=== PATIENT | female | born 1940 | race Asian ===

== ENCOUNTER 2016-07-21 06:09 | Day surgery (SDC) | END 2016-07-21 06:10 | disposition home or self-care (01) | CPT/HCPCS: G0121; J7120 ==

== ENCOUNTER 2017-03-15 10:24 | Outpatient (CLI) | payer MEDICARE, MEDICAID ==
--- NOTE | 2017-03-15 13:14 | XRAY Report ---
THREE VIEW BILATERAL SHOULDERS: 03/15/2017 CLINICAL INDICATION: Pain. FINDINGS: Internal and external rotational views and scapular Y views of the bilateral shoulders dem onstrate right worse than left degenerative changes in the glenohumeral and acromioclavicular joints. Both humeral heads appear high-riding, suspicious for chronic rotator cuff tears. There is no eviden ce of acute fracture or dislocation. IMPRESSION: RIGHT WORSE THAN LEFT OSTEOARTHRITIS. BILATERAL HIGH-RIDING HUMERAL HEADS, SUSPICIOUS FO R CHRONIC ROTATOR CUFF TEARS. JOB #: [id number] EXT JOB #:[id number]
== END 2017-03-15 10:25 | disposition home or self-care (01) ==
LOC: DI.N 10:24
PROVIDERS: ATTEND Family Medicine
DX: M25.512 Pain in left shoulder (principal); M25.511 Pain in right shoulder; M19.012 Primary osteoarthritis, left shoulder; M19.011 Primary osteoarthritis, right shoulder

== ENCOUNTER 2018-01-30 13:14 | Outpatient (CLI) | payer MEDICARE, MEDICAID ==
--- NOTE | 2018-01-30 14:43 | XRAY Report ---
Procedure Date: 01/30/2018 Accession Number: [id number] / [id number] Procedure: XR - Shoulder 2 View LT CPT Code: FULL RESULT: EXAM: Shoulder 2 View LT DATE: 01/30/2018 1:53 PM CLINICAL HISTORY: PRIM OSTEOARTHRITIS,LT SHOULDER,PAIN COMPARISON: None. TECHNIQUE: 3 views. FINDINGS: Bones: Old healed left humeral head impaction lesion. Joints: Mild sclerosis about the glenoid fossa. The acromioclavicular joint is within normal limits. Soft tissues: The visualized hemithorax is unremarkable. No soft tissue swelling. The patient is status post CABG. IMPRESSION: Degenerative changes as described. RADIA
== END 2018-01-30 13:15 | disposition home or self-care (01) ==
LOC: DI 13:14
PROVIDERS: ATTEND Family Medicine
DX: M19.012 Primary osteoarthritis, left shoulder (principal)

== ENCOUNTER 2018-02-07 07:46 | Outpatient (CLI) | payer MEDICARE, MEDICAID ==
[2018-02-07 12:25] LABS: BASOPHILS % (AUTO) 0.5 %; EOSINOPHILS # (AUTO) 0.2 10^3/uL (0.0-0.7); EOSINOPHILS % (AUTO) 2.2 %; HGB - HEMOGLOBIN 11.7 g/dL (12.0-16.0); LYMPHOCYTES # (AUTO) 2.3 10^3/uL (1.5-3.5); LYMPHOCYTES % (AUTO) 26.8 %; MEAN CORPUSCULAR HEMOGLOBIN 30.2 pg (27.0-31.0); MEAN CORPUSCULAR HGB CONC 33.8 g/dL (32.0-36.0); MEAN CORPUSCULAR VOLUME 89.3 fL (81.0-99.0); MEAN PLATELET VOLUME 7.4 fL (7.9-10.8); MONOCYTES # (AUTO) 0.7 10^3/uL (0.0-1.0); MONOCYTES % (AUTO) 8.1 %; NEUTROPHILS # (AUTO) 5.3 10^3/uL (1.5-6.6); NEUTROPHILS % (AUTO) 62.4 %; PLT - PLATELET COUNT 342 10^3/uL (130-450); RED CELL DISTRIBUTION WIDTH 13.7 % (12.0-15.0); WHITE BLOOD COUNT 8.5 x10^3/uL (4.8-10.8)
[2018-02-07 14:41] LABS: ALBUMIN 4.1 g/dL (3.2-5.5); ALBUMIN/GLOBULIN RATIO 1.1 (1.0-2.2); ALKALINE PHOSPHATASE 84 IU/L (42-121); ALT ALANINE AMINOTRANSFERASE 18 IU/L (10-60); AST ASPARTATE AMINOTRANSFERASE 28 IU/L (10-42); BILIRUBIN,TOTAL 0.5 mg/dL (0.2-1.0); BUN - BLOOD UREA NITROGEN 12 mg/dL (6-20); CALCIUM 8.6 mg/dL (8.5-10.3); CARBON DIOXIDE - CO2 25 mmol/L (21-32); CHLORIDE 102 mmol/L (101-111); CHOL/HDL RATIO 3.3 (<4.4); CHOLESTEROL 135 mg/dL; CREATININE 0.6 mg/dL (0.4-1.0); GFR - MDRD 96 (>89); GLUCOSE 93 mg/dL (70-100); HDL CHOLESTEROL 41 mg/dL; LDL CHOLESTEROL,CALCULATED 71 mg/dL; LDL/HDL RATIO 1.7 (<4.4); SODIUM 135 mmol/L (135-145); TOTAL PROTEIN 7.7 g/dL (6.7-8.2); VLDL CHOLESTEROL 23 mg/dL
== END 2018-02-07 07:47 ==
LOC: LAB.N 07:46
PROVIDERS: ATTEND Family Medicine
DX: D64.9 Anemia, unspecified (principal); I10 Essential (primary) hypertension; E78.5 Hyperlipidemia, unspecified
CPT/HCPCS: 36415; 80053; 80061; 83721; 84443; 85025

== ENCOUNTER 2019-03-15 08:00 | Outpatient (CLI) | payer MEDICARE, MEDICAID ==
[2019-03-15 12:25] LABS: BASOPHILS % (AUTO) 0.5 %; EOSINOPHILS # (AUTO) 0.1 10^3/uL (0.0-0.7); EOSINOPHILS % (AUTO) 1.5 %; HGB - HEMOGLOBIN 11.1 g/dL (12.0-16.0); LYMPHOCYTES # (AUTO) 1.4 10^3/uL (1.5-3.5); LYMPHOCYTES % (AUTO) 16.2 %; MEAN CORPUSCULAR HEMOGLOBIN 28.8 pg (27.0-31.0); MEAN CORPUSCULAR HGB CONC 31.5 g/dL (32.0-36.0); MEAN CORPUSCULAR VOLUME 91.2 fL (81.0-99.0); MEAN PLATELET VOLUME 9.1 fL (7.9-10.8); MONOCYTES # (AUTO) 0.7 10^3/uL (0.0-1.0); MONOCYTES % (AUTO) 7.6 %; NEUTROPHILS # (AUTO) 6.5 10^3/uL (1.5-6.6); PLT - PLATELET COUNT 310 10^3/uL (130-450); RED BLOOD COUNT 3.86 10^6/uL (4.20-5.40); RED CELL DISTRIBUTION WIDTH 13.2 % (12.0-15.0); WHITE BLOOD COUNT 8.7 x10^3/uL (4.8-10.8)
[2019-03-15 12:31] LABS: CALCIUM 9.2 mg/dL (8.5-10.3); CREATININE 0.8 mg/dL (0.4-1.0)
== END 2019-03-15 23:59 | disposition home or self-care (01) ==
LOC: LAB.N 08:00
PROVIDERS: ATTEND Physician Assistant Medical
DX: I10 Essential (primary) hypertension (principal)
CPT/HCPCS: 36415; 80048; 84443; 85025

== ENCOUNTER 2020-10-06 08:00 | Outpatient (CLI) | payer MEDICARE, MEDICAID ==
[2020-10-06 18:17] LABS: ALBUMIN 3.9 g/dL (3.2-5.5); ALBUMIN/GLOBULIN RATIO 1.2 (1.0-2.2); ALKALINE PHOSPHATASE 76 IU/L (42-121); ALT ALANINE AMINOTRANSFERASE 21 IU/L (10-60); AST ASPARTATE AMINOTRANSFERASE 31 IU/L (10-42); BILIRUBIN,TOTAL 0.5 mg/dL (0.2-1.0); BUN - BLOOD UREA NITROGEN 15 mg/dL (6-20); CALCIUM 8.8 mg/dL (8.5-10.3); CARBON DIOXIDE - CO2 24 mmol/L (21-32); CHLORIDE 105 mmol/L (101-111); CHOL/HDL RATIO 3.1 (<4.4); CHOLESTEROL 114 mg/dL; CREATININE 0.8 mg/dL (0.4-1.0); GFR - MDRD 69 (>89); GLUCOSE 89 mg/dL (70-100); HDL CHOLESTEROL 37 mg/dL; LDL CHOLESTEROL,CALCULATED 67 mg/dL; LDL/HDL RATIO 1.8 (<4.4); POTASSIUM 3.7 mmol/L (3.5-5.0); SODIUM 136 mmol/L (135-145); TOTAL PROTEIN 7.2 g/dL (6.7-8.2); TRIGLYCERIDES 51 mg/dL; VLDL CHOLESTEROL 10 mg/dL
== END 2020-10-06 23:59 | disposition home or self-care (01) ==
LOC: LAB.WCP 08:00
PROVIDERS: ATTEND Internal Medicine Cardiovascular Disease
DX: E78.5 Hyperlipidemia, unspecified (principal)
CPT/HCPCS: 36415; 80053; 80061; 83721

== ENCOUNTER 2021-12-02 10:01 | Outpatient (CLI) | payer MEDICARE, MEDICAID ==
[2021-12-02 12:36] LABS: ALBUMIN/GLOBULIN RATIO 1.2 (1.0-2.2); ALKALINE PHOSPHATASE 82 IU/L (42-121); ALT ALANINE AMINOTRANSFERASE 20 IU/L (10-60); AST ASPARTATE AMINOTRANSFERASE 28 IU/L (10-42); BILIRUBIN,TOTAL 0.6 mg/dL (0.2-1.0); BUN - BLOOD UREA NITROGEN 14 mg/dL (6-20); CALCIUM 8.8 mg/dL (8.5-10.3); CARBON DIOXIDE - CO2 25 mmol/L (21-32); CHLORIDE 99 mmol/L (101-111); CHOLESTEROL 120 mg/dL; CREATININE 0.7 mg/dL (0.4-1.0); GFR - MDRD 80 (>89); GLUCOSE 100 mg/dL (70-100); HDL CHOLESTEROL 40 mg/dL; POTASSIUM 4.1 mmol/L (3.5-5.0); SODIUM 133 mmol/L (135-145); TOTAL PROTEIN 7.4 g/dL (6.7-8.2); TRIGLYCERIDES 39 mg/dL
== END 2021-12-02 10:02 | disposition home or self-care (01) ==
LOC: LAB.N 10:01
PROVIDERS: ATTEND Internal Medicine Cardiovascular Disease
DX: E78.5 Hyperlipidemia, unspecified (principal)
CPT/HCPCS: 36415; 80053; 80061; 83721

== ENCOUNTER 2022-04-13 09:59 | Outpatient (CLI) | payer MEDICARE, MEDICAID ==
[2022-04-13 11:45] LABS: BASOPHILS % (AUTO) 0.4 %; EOSINOPHILS # (AUTO) 0.1 10^3/uL (0.0-0.7); EOSINOPHILS % (AUTO) 1.3 %; HCT - HEMATOCRIT 34.3 % (37.0-47.0); HGB - HEMOGLOBIN 11.5 g/dL (12.0-16.0); LYMPHOCYTES # (AUTO) 1.2 10^3/uL (1.5-3.5); LYMPHOCYTES % (AUTO) 17.6 %; MEAN CORPUSCULAR HEMOGLOBIN 29.8 pg (27.0-31.0); MEAN CORPUSCULAR HGB CONC 33.5 g/dL (32.0-36.0); MEAN CORPUSCULAR VOLUME 88.9 fL (81.0-99.0); MEAN PLATELET VOLUME 8.9 fL (7.9-10.8); MONOCYTES # (AUTO) 0.5 10^3/uL (0.0-1.0); MONOCYTES % (AUTO) 6.9 %; NEUTROPHILS # (AUTO) 5.1 10^3/uL (1.5-6.6); NEUTROPHILS % (AUTO) 73.5 %; PLT - PLATELET COUNT 284 10^3/uL (130-450); RED BLOOD COUNT 3.86 10^6/uL (4.20-5.40); RED CELL DISTRIBUTION WIDTH 12.9 % (12.0-15.0)
[2022-04-13 12:53] LABS: ALBUMIN 4.3 g/dL (3.2-5.5); ALBUMIN/GLOBULIN RATIO 1.4 (1.0-2.2); ALKALINE PHOSPHATASE 63 IU/L (42-121); ALT ALANINE AMINOTRANSFERASE 18 IU/L (10-60); AST ASPARTATE AMINOTRANSFERASE 27 IU/L (10-42); BILIRUBIN,TOTAL 0.6 mg/dL (0.2-1.0); BUN - BLOOD UREA NITROGEN 17 mg/dL (6-20); CALCIUM 9.1 mg/dL (8.5-10.3); CARBON DIOXIDE - CO2 24 mmol/L (21-32); CHLORIDE 102 mmol/L (101-111); CHOL/HDL RATIO 2.5 (<4.4); CHOLESTEROL 143 mg/dL; CK- CREATINE KINASE 126 IU/L (22-269); CREATININE 0.6 mg/dL (0.4-1.0); GFR - MDRD 95 (>89); GLUCOSE 96 mg/dL (70-100); HDL CHOLESTEROL 57 mg/dL; POTASSIUM 4.1 mmol/L (3.5-5.0); SODIUM 135 mmol/L (135-145); TOTAL PROTEIN 7.4 g/dL (6.7-8.2); TRIGLYCERIDES 38 mg/dL
== END 2022-04-13 10:00 | disposition home or self-care (01) ==
LOC: LAB.N 09:59
PROVIDERS: ATTEND Internal Medicine
DX: I10 Essential (primary) hypertension (principal); I25.10 Atherosclerotic heart disease of native coronary artery without angina pectoris; H91.90 Unspecified hearing loss, unspecified ear; E78.5 Hyperlipidemia, unspecified; Z79.899 Other long term (current) drug therapy
CPT/HCPCS: 36415; 80053; 80061; 82550; 83721; 84443; 85025

== ENCOUNTER 2023-01-27 15:04 | Inpatient (IN) | payer MEDICARE, MEDICAID ==
[2023-01-27 16:23] LABS: BASOPHILS # (AUTO) 0.1 10^3/uL (0.0-0.1); BASOPHILS % (AUTO) 0.4 %; EOSINOPHILS # (AUTO) 0.2 10^3/uL (0.0-0.7); EOSINOPHILS % (AUTO) 1.3 %; HCT - HEMATOCRIT 27.9 % (37.0-47.0); HGB - HEMOGLOBIN 9.1 g/dL (12.0-16.0); LYMPHOCYTES # (AUTO) 0.6 10^3/uL (1.5-3.5); LYMPHOCYTES % (AUTO) 5.3 %; MEAN CORPUSCULAR HEMOGLOBIN 27.2 pg (27.0-31.0); MEAN CORPUSCULAR HGB CONC 32.6 g/dL (32.0-36.0); MEAN CORPUSCULAR VOLUME 83.5 fL (81.0-99.0); MEAN PLATELET VOLUME 8.5 fL (7.9-10.8); MONOCYTES # (AUTO) 1.1 10^3/uL (0.0-1.0); MONOCYTES % (AUTO) 9.6 %; NEUTROPHILS # (AUTO) 9.4 10^3/uL (1.5-6.6); PLT - PLATELET COUNT 476 10^3/uL (130-450); RED BLOOD COUNT 3.34 10^6/uL (4.20-5.40); RED CELL DISTRIBUTION WIDTH 13.3 % (12.0-15.0); WHITE BLOOD COUNT 11.3 x10^3/uL (4.8-10.8)
[2023-01-27 16:41] LABS: ALBUMIN/GLOBULIN RATIO 0.8 (1.0-2.2); BILIRUBIN,TOTAL 0.5 mg/dL (0.2-1.0); CREATININE 2.4 mg/dL (0.4-1.0); POTASSIUM 3.9 mmol/L (3.5-5.0); TOTAL PROTEIN 6.8 g/dL (6.7-8.2)
[2023-01-27 16:43] LABS: CALCIUM 14.9 mg/dL (8.5-10.3)
[2023-01-27] MEDS ORDERED: SODIUM CHLORIDE 0.9% 1,000 ML IV STA (17:36)
[2023-01-27 17:49] LABS: MAGNESIUM 2.3 mg/dL (1.7-2.8)
--- NOTE | 2023-01-27 18:24 | ED Physician Documentation ---
History of Present Illness - Stated complaint Stated Complaint: LOSS OF APPETITE - Chief complaint Chief Complaint: General - Additonal information Additional information: 83-year-old female is brought to the hospital by her son for evaluation of 11 days anorexia and nausea. Son reports that his mom has had very little to eat or drink. She has early CAD. Denies any recent cough or fevers. Past medical history most significant for coronary artery disease status post CABG in 2014 at [facility] Patient is Tagalog speaking. History obtained by son Meds: Losartan, atenolol, Plavix, atorvastatin, Centrum Silver, Closter MVI Review of Systems Unable to obtain: Other (tagalog) Constitutional: reports: Fatigue, Weight Loss Ears: reports: Reviewed and negative Throat: reports: Reviewed and negative Cardiac: reports: Reviewed and negative Respiratory: reports: Reviewed and negative GI: reports: Nausea, Other (Anorexia and early satiety). denies: Abdominal Pain : reports: Reviewed and negative Skin: reports: Reviewed and negative Musculoskeletal: reports: Reviewed and negative PD PAST MEDICAL HISTORY - Past Medical History Cardiovascular: Hypertension, Coronary artery disease, CT Respiratory: None Endocrine/Autoimmune: None GI: None : None HEENT: None Psych: None Musculoskeletal: Osteoarthritis Derm: None - Past Surgical History Past Surgical History: Yes General: Colonoscopy Cardiovascular: CABG, Coronary stent HEENT: Cataracts - Present Medications Home Medications: Ambulatory Orders Medication Instructions Recorded Confirmed Clopidogrel Bisulfate [Plavix] 75 mg PO DAILY 04/13/14 12/28/15 Losartan [Cozaar] 50 mg PO BID 04/13/14 12/28/15 atenoloL [Tenormin] 75 mg PO DAILY 04/13/14 12/28/15 Aspirin 162.5 mg PO DAILY 12/28/15 12/28/15 Atorvastatin Calcium 40 mg PO DAILY 12/28/15 12/28/15 Multivitamin,Therapeutic 1 tab PO DAILY 12/28/15 12/28/15 [Thera-Tabs] Potassium Chloride 20 meq PO DAILY 12/28/15 12/28/15 - Allergies Allergies/Adverse Reactions: Allergies Allergy/AdvReac Type Severity Reaction Status Date / Time Penicillins Allergy Rash Verified 01/27/23 15:55 - Social History Does the pt smoke?: No Smoking Status: Never smoker Does the pt drink ETOH?: No Does the pt have substance abuse?: No PD ED PE NORMAL - General General: Alert and oriented X 3, No acute distress, Well developed/nourished - HEENT HEENT: Atraumatic, Moist mucous membranes - Cardiac Cardiac: RRR, No murmur (3/6 simms systolic murmur), Strong equal pulses - Respiratory Respiratory: No respiratory distress, Clear bilaterally - Abdomen Abdomen: Normal bowel sounds, Soft, Non tender - Back Back: No CVA TTP - Derm Derm: Normal color, Warm and dry, No rash - Extremities Extremities: No deformity - Neuro Neuro: Alert and oriented X 3, caddie 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 2-12 intact Eye Opening: Spontaneous Motor: Obeys Commands Verbal: Oriented GCS Score: 15 Results - Vitals Vitals: Vital Signs - 24 hr 01/27/23 01/27/23 01/27/23 15:48 15:54 17:54 Temperature 37 C 37.0 C 37.0 C Heart Rate 72 72 70 Respiratory 16 16 16 Rate Blood Pressure 144/60 H 144/60 H 140/60 H O2 Saturation 99 99 100 01/27/23 19:00 Temperature Heart Rate 72 Respiratory 16 Rate Blood Pressure 138/62 H O2 Saturation 99 Oxygen O2 Source Room air - Labs Labs: Laboratory Tests 01/27/23 01/27/23 01/27/23 16:20 16:20 16:20 WBC 11.3 H RBC 3.34 L Hgb 9.1 L Hct 27.9 L MCV 83.5 MCH 27.2 MCHC 32.6 RDW 13.3 Plt Count 476 H MPV 8.5 Neut # (Auto) 9.4 H Lymph # (Auto) 0.6 L Scurry # (Auto) 1.1 H Eos # (Auto) 0.2 Baso # (Auto) 0.1 Absolute Nucleated RBC 0.00 Nucleated RBC % 0.0 Sodium 131 L Potassium 3.9 Chloride 93 L Carbon Dioxide 29 Anion Gap 9.0 BUN 43 H Creatinine 2.4 H Estimated GFR (MDRD) 19 L Glucose 135 H Calcium 14.9 H* Phosphorus Magnesium Total Bilirubin 0.5 AST 35 ALT 33 Alkaline Phosphatase 66 Total Protein 6.8 Albumin 3.0 L Globulin 3.8 Albumin/Globulin Ratio 0.8 L Lipase 61 H TSH 5.22 Free T4 1.24 PTH Intact 01/27/23 01/27/23 16:20 16:30 WBC RBC Hgb Hct MCV MCH MCHC RDW Plt Count MPV Neut # (Auto) Lymph # (Auto) Scurry # (Auto) Eos # (Auto) Baso # (Auto) Absolute Nucleated RBC Nucleated RBC % Sodium Potassium Chloride Carbon Dioxide Anion Gap BUN Creatinine Estimated GFR (MDRD) Glucose Calcium Phosphorus 5.0 H Magnesium 2.3 Total Bilirubin AST ALT Alkaline Phosphatase Total Protein Albumin Globulin Albumin/Globulin Ratio Lipase TSH Free T4 PTH Intact 7 L - Rads (name of study) CT head Relevant Findings:: Final report received (No acute Intracerebral findings) CT abd Relevant Findings:: Final report received (Fluid distended stomach lumen which could represent gastroparesis. No bowel obstruction or abnormal bowel wall thickening. Diverticulosis without-itis. No abscess collection. No free air. Generalized anasarca and a small amount of ascites. Mild hepatomegaly. Distended gallbladder.) CT chest Relevant Findings:: Final report received (Pending atelectasis in posterior aspect of bilateral lung dominguez. Ill-defined nodular opacity scattered in the left upper lobe following bronchial vascular distribution concerning for pneumonitis or early infiltrates. No pleural effusion or pneumothorax. Cardiomegaly without pericardial effusion.) PD Medical Decision Making - ED course Complexity details: reviewed results, re-evaluated patient, considered differential, d/w patient ED course: 83-year-old male presents to the emergency department for evaluation of 10 to 12 days progressive weakness and anorexia. She tires and gets full quickly when eating. She has had some nausea but no vomiting. No complaints of chest pain or shortness of air. Past medical history most significant for CABG in 2013. On presentation and greeted by Tagalog speaking [place] woman who appears stated age. She is frail-appearing. Her vital signs are without fever tachycardia or hypotension. On exam she has a grade 3/6 systolic murmur. However full pulmonary excursion. Room air sats are 97%. She does have mildly distended abdomen was nontender. Subsequently CBC and electrolytes were obtained. Per my interpretation she does have a mild leukocytosis with white count of 11.8 thousand. Her electrolytes show a mild hyponatremia with sodium of 131 and a calcium of 14.5. Also findings of acute kidney injury with a BUN of 43 and a creatinine of 2.4. PTH is mildly decreased at 7. With the findings of hypercalcemia we initially ordered a 1000 mL fluid bolus to run at 250 mL/h. Clinically the patient presents with generalized weakness hypercalcemia and acute kidney injury. Etiology is not clear. I did obtain a CT of the head, chest abdomen pelvis without contrast. Per my interpretation CT of the head showed no acute intracranial findings. Radiology read is pending. However the CT of the abdomen pelvis showed distended stomach which could represent gastroparesis. There is no bowel obstruction, hydronephrosis or abscess collection or free air. She did have some generalized anasarca. CT of the chest revealed some atelectasis and ill-defined opacities in the left upper lobe which could be concerning for an early pneumonia. With this finding I administered the patient a gram of ceftriaxone and 500 mg of azithromycin. Patient will be admitted to the inpatient service for further evaluation and management of her hypercalcemia, acute kidney injury and generalized weakness. I spoke with telehospitalist Dr. Walker who agrees to bring patient in for further evaluate evaluation and management of this. Furhter care to be dictated by the inpatient service Departure - Departure Disposition: 66 [facility] DC/Xfer Clinical Impression: Hypercalcemia, LAYLA (acute kidney injury), Gastric distention, Anasarca, Murmur, heart
[2023-01-27 18:57] LABS: THYROID STIMULATING HORMONE 5.22 uIU/mL (0.34-5.60)
[2023-01-27 18:59] LABS: FREE T4 (FREE THYROXINE) 1.24 ng/dL (0.58-1.64)
--- NOTE | 2023-01-27 19:00 | CT Report ---
PROCEDURE: CHEST WO INDICATIONS: hypercalcemia TECHNIQUE: Noncontrast 1mm axial images were acquired from the pulmonary apices to the posterior costophrenic an gles. Axial 5 mm soft tissue kernel reconstructions were performed as well as 8 mm axial MIP and cor onal and sagittal 5 mm reformations. For radiation dose reduction, the following was used: automate d exposure control, adjustment of mA and/or kV according to patient size. COMPARISON: None FINDINGS: Image quality: Excellent. Lungs and pleura: There is mild centrilobular emphysema. Dependent atelectasis in posterior aspect of bilateral lung dominguez are seen. Subtle opacities are seen scattered in right upper lobe following br onchial vascular distribution extending to right hilar region. No other airspace opacities are seen. No pleural effusion or pneumothorax. Airway is patent. Mediastinum: Heart size is enlarged. No pericardial effusion. Moderate atherosclerotic calcifications are noted in coronary vessels and thoracic aorta. No large vessel abnormality. No mediastinal adenop athy by size criteria. Chest wall and lower neck: Median sternotomy wires are seen. Thyroid is unremarkable. No axillary or supraclavicular adenopathy by size. Bones: No aggressive osseous abnormality. Degenerative disc disease throughout thoracic spine is seen . Upper Abdomen: Please correlate with CT of abdomen and pelvis findings. IMPRESSION: 1. Dependent atelectasis in posterior aspect of bilateral lung dominguez. Ill-defined nodular opacities scattered in left upper lobe following bronchial vascular distribution concerning for for pneumonitis /early infiltrates. No pleural effusion or pneumothorax. Airway is patent. 2. Cardiomegaly without pericardial effusion. Prior median sternotomy. Moderate atherosclerotic disea se. No mediastinal or hilar lymphadenopathy by size criteria. Reviewed by: Jose Dotson MD on 01/27/2023 6:59 PM PDT Approved by: Jose Dotson MD on 01/27/2023 6:59 PM PDT Station ID: [id number]
--- NOTE | 2023-01-27 19:04 | CT Report ---
PROCEDURE: ABDOMEN/PELVIS WO INDICATIONS: hypercalcemia TECHNIQUE: A CT scan of the abdomen and pelvis was performed without the use of intravenous contrast. Images we re recorded and evaluated at appropriate window settings. Reformats: coronal and sagittal. For radiat ion dose reduction, the following was used: automated exposure control, adjustment of mA and/or kV ac cording to patient size. COMPARISON: None. FINDINGS: Image quality: Excellent. Lung bases and heart: Bibasilar dependent atelectasis is seen. Heart size is enlarged, no pericardia l effusion. Liver: Mild hepatomegaly. No gross solid hepatic lesion. Gallbladder and biliary tree: Gallbladder is distended. No calcified gallstone. No definite gallbladd er wall thickening. Spleen: No splenomegaly. Pancreas: No pancreatic ductal dilation. Adrenals: No adrenal nodule. Kidneys and ureters: No hydronephrosis. No renal cystic lesion which requires follow up. No solid mas s. Bowel and peritoneum: Significant fluid distended stomach lumen is noted. No gross gastric wall thick ening. Small amount of ascites fluid is seen in abdomen or pelvis. There is no evidence of bowel obst ruction. No gross abnormal bowel wall thickening. Sigmoid diverticulosis is seen without sigmoid colo n wall thickening or mesenteric fat stranding. No abscess collection. No peritoneal free air. Lymph nodes: No central or retroperitoneal adenopathy. Vessels: No infrarenal aortic aneurysm. Moderate atherosclerotic disease in the abdominal aorta is se en. PELVIS Reproductive organs: Unremarkable. Bladder: No wall thickness, accounting for underdistention. Pelvic lymph nodes: No pelvic adenopathy by size criteria. Bones: No aggressive osseous abnormality. Degenerative disc disease throughout lower thoracic and lum bar spine is seen. Grade 1 anterolisthesis of L5 on S1 is noted. No gross pars defect. Other: No significant ventral or inguinal hernia. Generalized anasarca is noted. IMPRESSION: 1. Fluid distended stomach lumen, which could represent gastroparesis, suggest clinical correlation. 2. No bowel obstruction or abnormal bowel wall thickening. Sigmoid diverticulosis without evidence of acute diverticulitis. No abscess collection. No peritoneal free air. 3. Generalized anasarca and small amount of ascites fluid in abdomen or pelvis. 4. Mild hepatomegaly. Distended gallbladder without CT evidence of acute cholecystitis. No biliary du ctal dilatation. Reviewed by: Jose Dotson MD on 01/27/2023 7:02 PM PDT Approved by: Jose Dotson MD on 01/27/2023 7:02 PM PDT Station ID: [id number]
[2023-01-27] MEDS ORDERED: METOCLOPRAMIDE 10 MG/2 ML VIAL IVP STA (19:13)
[2023-01-27] MEDS ORDERED: cefTRIAXone 1 GM VIAL IVP STA (19:15)
[2023-01-27] MEDS ORDERED: AZITHROMYCIN INJ 500 MG in SODIUM CHLORIDE 0.9% 250 ML IV STA (19:15)
[2023-01-27] MEDS ORDERED: SODIUM CHLORIDE FLUSH 0.9% 10 ML SYRINGE IVP PRN (19:35)
[2023-01-27] MEDS ORDERED: ONDANSETRON 4 MG/2 ML VIAL IVP PRN (19:35)
--- NOTE | 2023-01-27 19:52 | HISTORY & PHYSICAL EXAMINATION ---
Chief Complaint - Chief Complaint Chief Complaint: Decreased appetite History of Present Illness - History of Present Illness HPI Comment/Other: 83 y old female with PMH HTN, Hyperlipidemia, CAD s/p CABG brought in to the ER due to weakness, decreased appetite, for last 2 weeks. Patient is unable to provide any history so most of history is by the son present at bedside. No H/O hedache, chest pain, cough, nausea, vomiting, diarrhea or constipation On presentaion, pt was afebrile Labs showed WBC 11, [employer] 2.4, Ca 14 CT chest , abdomen, pelvis was done which showed possible infiltrate, gastroparesis In ER, patient was given IVF and abx Patient is admitted due to pneumonia, LAYLA, Hypercalcemia, dehydartion, weakness and debility History - Past Medical History Cardiovascular: reports: Hypertension, Coronary artery disease, [place] Respiratory: reports: None Endocrine/Autoimmune: reports: None GI: reports: None : reports: None HEENT: reports: None Psych: reports: None Musculoskeletal: reports: Osteoarthritis Derm: reports: None MRSA Hx?: No - Past Surgical History General: reports: Colonoscopy Cardiovascular: reports: CABG, Coronary stent HEENT: reports: Cataracts Meds/Allgy - Home Medications Home Medications: Ambulatory Orders Medication Instructions Recorded Confirmed Clopidogrel Bisulfate [Plavix] 75 mg PO DAILY 04/13/14 12/28/15 Losartan [Cozaar] 50 mg PO BID 04/13/14 12/28/15 atenoloL [Tenormin] 75 mg PO DAILY 04/13/14 12/28/15 Aspirin 162.5 mg PO DAILY 12/28/15 12/28/15 Atorvastatin Calcium 40 mg PO DAILY 12/28/15 12/28/15 Multivitamin,Therapeutic 1 tab PO DAILY 12/28/15 12/28/15 [Thera-Tabs] Potassium Chloride 20 meq PO DAILY 12/28/15 12/28/15 - Allergies Allergies/Adverse Reactions: Allergies Allergy/AdvReac Type Severity Reaction Status Date / Time Penicillins Allergy Rash Verified 01/27/23 15:55 Review of Systems - Other Findings Other Findings: 10 point systems were reviewed and were negative except mentioned in HPI Exam - Vital Signs Vital Signs: Vital Signs x48h Temp Pulse Resp BP Pulse Ox 01/27/23 19:00 72 16 138/62 H 99 01/27/23 17:54 37.0 C 70 16 140/60 H 100 01/27/23 15:54 37.0 C 72 16 144/60 H 99 01/27/23 15:48 37 C 72 16 144/60 H 99 - Physical Exam General Appearance: positive: No acute distress Eyes Bilateral: positive: Normal inspection ENT: positive: ENT inspection nml Neck: positive: Nml inspection Respiratory: positive: No respiratory distress, Breath sounds nml Cardiovascular: positive: Regular rate & rhythm Abdomen: positive: Non-tender, Nml bowel sounds Skin: positive: No rash Extremities: positive: No pedal edema Neurologic/Psychiatric: positive: Motor nml Conclusion/Plan - Lab Results Fish Bones: 01/27/23 16:20 01/27/23 16:20 - Other Other Results/Comments: A: Pneumonia LAYLA Hypercalcemia Severe dehydartion Weakness and debility HTN Hyperlipidemia CAD s/p CABG Plan: Admit to med surg with tele Cardiac monitoring Follow cultures Start IV rocephin and zithromax Start NS@ 125 cc/h Monitor I/O, electrolytes PT/OT Cont atenolol Hold aspirin and losartan due to LAYLA Cont lipitor Supportiove care DVT prophylaxic:SCD Full code Patient is admitted as inpatient as more than 2 midnight stay is expected Plan of care was discussed in detail with patients son present at bedside who agreed to proceed
[2023-01-27] MEDS: SODIUM CHLORIDE 0.9% 1,000 ML IV SCH (20:00)
--- NOTE | 2023-01-27 20:14 | CT Report ---
PROCEDURE: HEAD WO INDICATIONS: headache, nausea TECHNIQUE: Noncontrast 4.5 mm thick angled axial sections acquired from the foramen magnum to the vertex. For r adiation dose reduction, the following was used: automated exposure control, adjustment of mA and/or kV according to patient size. COMPARISON: 04/05/2014 FINDINGS: Image quality: Excellent. CSF spaces: Basal cisterns are patent. No extra-axial fluid collections. The ventricles are symmet angy in size and shape. Brain: No intracranial bleeds or masses. There is cerebral volume loss for age, with resultant vent ricular and sulcal prominence. There are periventricular and deep white matter chronic small vessel ischemic changes. There is intracranial internal carotid artery atherosclerosis. Skull and face: Calvarium and visualized facial bones appear intact, without suspicious lesions. Sinuses: Visualized sinuses and mastoids are clear. IMPRESSION: No CT evidence of acute intracranial abnormalities. Reviewed by: Jose Dotson MD on 01/27/2023 8:13 PM PDT Approved by: Jose Dotson MD on 01/27/2023 8:13 PM PDT Station ID: [id number]
[2023-01-27 21:12] LABS: BILIRUBIN,URINE NEGATIVE (NEGATIVE); GLUCOSE, URINE (UA) NEGATIVE (NEGATIVE); KETONES,URINE (UA) NEGATIVE (NEGATIVE); LEUKOCYTE ESTERASE, URINE NEGATIVE (NEGATIVE); NITRITE,URINE POSITIVE (NEGATIVE); OCCULT BLOOD,URINE NEGATIVE (NEGATIVE); PROTEIN,URINE NEGATIVE (NEGATIVE); UROBILINOGEN,URINE 0.2 (NORMAL) E.U./dL (NORMAL)
[2023-01-27 21:13] LABS: CLARITY,URINE CLEAR (CLEAR)
[2023-01-27 21:40] LABS: BACTERIA,URINE Few /HPF (None Seen); RBC,URINE 0-5 /HPF (0-5); SQUAMOUS EPITHELIAL CELL,UR FEW Squamous (<= Few)
[2023-01-28] MEDS: SODIUM CHLORIDE FLUSH 0.9% 10 ML SYRINGE IVP SCH ×3 (00:24→18:52)
[2023-01-28] MEDS: SODIUM CHLORIDE 0.9% 1,000 ML IV SCH ×3 (02:29→22:12)
[2023-01-28 05:23] LABS: HGB - HEMOGLOBIN 7.4 g/dL (12.0-16.0); MEAN CORPUSCULAR HEMOGLOBIN 27.5 pg (27.0-31.0); MEAN CORPUSCULAR HGB CONC 32.2 g/dL (32.0-36.0); MEAN CORPUSCULAR VOLUME 85.5 fL (81.0-99.0); MEAN PLATELET VOLUME 8.9 fL (7.9-10.8); NEUTROPHILS # (AUTO) 7.5 10^3/uL (1.5-6.6); NEUTROPHILS % (AUTO) 80.7 %; RED BLOOD COUNT 2.69 10^6/uL (4.20-5.40); RED CELL DISTRIBUTION WIDTH 13.3 % (12.0-15.0); WHITE BLOOD COUNT 9.2 x10^3/uL (4.8-10.8)
[2023-01-28 05:38] LABS: ALBUMIN 2.3 g/dL (3.2-5.5); ALBUMIN/GLOBULIN RATIO 0.8 (1.0-2.2); BILIRUBIN,TOTAL 0.4 mg/dL (0.2-1.0); CREATININE 2.3 mg/dL (0.4-1.0); POTASSIUM 3.6 mmol/L (3.5-5.0); TOTAL PROTEIN 5.3 g/dL (6.7-8.2)
[2023-01-28 05:42] LABS: CALCIUM 12.8 mg/dL (8.5-10.3)
[2023-01-28] MEDS ORDERED: ATORVASTATIN 40 MG TABLET PO SCH (09:00)
[2023-01-28] MEDS: SENNA 8.6 MG TABLET PO SCH (09:00)
[2023-01-28] MEDS: DOCUSATE SODIUM 250 MG CAPSULE PO SCH (09:00)
[2023-01-28] MEDS: atenoloL 25 MG TABLET PO SCH (09:00)
[2023-01-28] MEDS: cefTRIAXone 1 GM in SODIUM CHLORIDE 0.9% MINIBAG 100 ML IV SCH (09:01)
[2023-01-28] MEDS: polyethylene glycoL 3350 17 GM PACKET PO SCH (09:01)
--- NOTE | 2023-01-28 09:25 | PROVIDER PROGRESS NOTE ---
Assessment/Plan - Problem List (1) Pneumonia Assessment/Plan: Patient presented with a mildly elevated WBC of 11.6. Her chest x-ray and CT chest are showing possible pneumonitis or early pneumonia Plan: Continue with empiric IV Zithromax and IV ceftriaxone We will order sputum culture (2) LAYLA Her baseline creatinine is 0.9. She presented with a creatinine of 2.2. There is a history of her having failure to thrive for the past 10 to 12 days. Her LAYLA is therefore most likely from dehydration Plan: Because of concern for CHF, I will decrease the IV fluid rate from 125/h to 1 00/h Avoid nephrotoxins Follow BMP daily (3) Hypercalcemia She presented with a calcium of 14.8, after receiving aggressive fluids in the ER then fluids at 125 cc an hour since admission, this morning's calcium is 12.8 (all labs were reviewed). Hypercalcemia in the setting of having an abnormal chest x-ray with nodules and opacities is concerning that there could be a malignancy, specific Lucian small cell lung cancer. Plan: Continue with IV fluids, and I will check a BNP and obtain an Echo to evaluate her LVEF, to determine a safe IV fluid rate (4) Weakness This was presumed to be on the basis of being dehydrated, failure to thrive for 10 to 12 days at home, findings of possible pneumonia on chest x-ray, uremia on labs and hypercalcemia Plan: Continue with management as above for the pneumonia and hypercalcemia We will order PT and OT evaluations (5) Anasarca Her CT abdomen was read as having anasarca. Her main complaint was that of abdominal pain and early satiety. Plan: We will check a BNP and obtain an Echo to evaluate LVEF and evaluate the murmurs Follow her BNP daily Monitor for hypoxia and the need for supplemental O2 (6) HTN As per history. Plan: We will resume her usual home meds when the list is reconciled by pharmacy and when appropriate based on her vital signs, given her dehydration (7) CAD s/p CABG Plan: I will continue her on her aspirin and resume her other meds when the list is reconciled - Current Meds Current Meds: Current Medications Generic Name Dose Route Start Last Admin Trade Name Freq PRN Reason Stop Dose Admin Atenolol 50 mg 01/28/23 09:00 01/28/23 09:00 Atenolol 25 Mg Tablet PO 50 mg DAILY MIKE Administration Docusate Sodium 250 - 500 mg 01/28/23 09:00 01/28/23 09:00 Docusate Sodium 250 Mg Capsule PO 250 mg DAILY MIKE Administration Ceftriaxone Sodium 1 gm/ 100 mls @ 200 mls/hr 01/28/23 09:00 01/28/23 09:01 Sodium Chloride IV 200 mls/hr DAILY MIKE Administration Polyethylene Glycol 17 gm 01/28/23 09:00 01/28/23 09:01 Polyethylene Glycol 3350 17 Gm Packet PO 17 gm DAILY MIKE Administration Senna 8.6 - 17.2 mg 01/28/23 09:00 01/28/23 09:00 Senna 8.6 Mg Tablet PO 8.6 mg DAILY MIKE Administration Sodium Chloride 10 ml 01/28/23 01:00 01/28/23 09:06 Sodium Chloride Flush 0.9% 10 Ml Syringe IVP Not Given 0100,0900,1700 MIKE - Lab Result Fish Bone Diagrams: 01/29/23 04:27 01/29/23 04:27 - Additional Planning My Orders: My Active Orders 01/28/23 CUL, RESPIRATORY [RM] Stat 01/28/23 05:00 BNP - B-NATRIURETIC PEPTIDE [IAI] Routine 01/28/23 09:14 Chest 1 View X-Ray [XR] Stat Sodium Chloride 0.9% [Normal Saline 0.9%] 1,000 ml IV 100 mls/hr 01/28/23 21:00 Atorvastatin [Lipitor] 40 mg PO QPM 01/29/23 05:00 BMP - BASIC METABOLIC PANEL [CHEM] DAILYLAB BNP - B-NATRIURETIC PEPTIDE [IAI] DAILYLAB CALCIUM [CHEM] DAILYLAB CBC - COMP BLD CT W/AUTO DIFF [HEME] DAILYLAB MAGNESIUM [CHEM] DAILYLAB PHOSPHORUS [CHEM] DAILYLAB 01/30/23 05:00 BMP - BASIC METABOLIC PANEL [CHEM] DAILYLAB CALCIUM [CHEM] DAILYLAB 01/31/23 05:00 BMP - BASIC METABOLIC PANEL [CHEM] DAILYLAB CALCIUM [CHEM] DAILYLAB 02/01/23 05:00 BMP - BASIC METABOLIC PANEL [CHEM] DAILYLAB CALCIUM [CHEM] DAILYLAB Subjective - Subjective Patient Reports: Feeling Better (The son is at bedside. He says that his mother ate well and had an appetite. She walked to the bathroom and back, was able to brush her teeth and toilet independently) Objective Vital Signs: Vital Signs - 24 hr 01/27/23 01/27/23 01/27/23 15:48 15:54 17:54 Temperature 37 C 37.0 C 37.0 C Heart Rate 72 72 70 Heart Rate [ Brachial] Respiratory 16 16 16 Rate Blood Pressure 144/60 H 144/60 H 140/60 H Blood Pressure [Left Brachial artery] O2 Saturation 99 99 100 01/27/23 01/27/23 01/28/23 19:00 20:30 00:00 Temperature 37.1 C 37.0 C Heart Rate 72 Heart Rate [ 72 69 Brachial] Respiratory 16 16 18 Rate Blood Pressure 138/62 H Blood Pressure 130/57 L 128/79 [Left Brachial artery] O2 Saturation 99 98 96 01/28/23 01/28/23 05:15 07:40 Temperature 36.3 C L 36.3 C L Heart Rate Heart Rate [ 64 69 Brachial] Respiratory 14 16 Rate Blood Pressure Blood Pressure 106/51 L 110/56 L [Left Brachial artery] O2 Saturation 96 98 Oxygen O2 Source Room air I&O (Last 24 Hrs): Intake and Output Totals x24h 01/26/23 01/27/23 01/28/23 23:59 23:59 23:59 Intake Total 1375 1410.417 Output Total 350 550 Balance 1025 860.417 General: Alert, Oriented x3, Other (Thin, frail, elderly) HEENT: EOMI, Mucous membr. moist/pink Neck: Supple, No JVD Neuro: Alert, Non Focal Cardiovascular: Regular rate, Other (2/6 systolic murmur, 1/6 diastolic murmur) Respiratory: No respiratory distress, Breath sounds nml Abdomen: Normal bowel sounds, Soft, No tenderness, No masses Extremities: No clubbing, No cyanosis, No edema - Results Results: Laboratory Results WBC 9.2 x10^3/uL (4.8-10.8) 01/28/23 04:30 RBC 2.69 10^6/uL (4.20-5.40) L 01/28/23 04:30 Hgb 7.4 g/dL (12.0-16.0) L 01/28/23 04:30 Hct 23.0 % (37.0-47.0) L 01/28/23 04:30 MCV 85.5 fL (81.0-99.0) 01/28/23 04:30 MCH 27.5 pg (27.0-31.0) 01/28/23 04:30 MCHC 32.2 g/dL (32.0-36.0) 01/28/23 04:30 RDW 13.3 % (12.0-15.0) 01/28/23 04:30 Plt Count 417 10^3/uL (130-450) 01/28/23 04:30 MPV 8.9 fL (7.9-10.8) 01/28/23 04:30 Neut # (Auto) 7.5 10^3/uL (1.5-6.6) H 01/28/23 04:30 Lymph # (Auto) 0.6 10^3/uL (1.5-3.5) L 01/27/23 16:20 [place] # (Auto) 1.1 10^3/uL (0.0-1.0) H 01/27/23 16:20 Eos # (Auto) 0.2 10^3/uL (0.0-0.7) 01/27/23 16:20 Baso # (Auto) 0.1 10^3/uL (0.0-0.1) 01/27/23 16:20 Absolute Nucleated RBC 0.00 x10^3/uL 01/27/23 16:20 Nucleated RBC % 0.0 /100WBC 01/27/23 16:20 Sodium 135 mmol/L (135-145) 01/28/23 04:30 Potassium 3.6 mmol/L (3.5-5.0) 01/28/23 04:30 Chloride 102 mmol/L (101-111) 01/28/23 04:30 Carbon Dioxide 27 mmol/L (21-32) 01/28/23 04:30 Anion Gap 6.0 (6-13) 01/28/23 04:30 BUN 40 mg/dL (6-20) H 01/28/23 04:30 Creatinine 2.3 mg/dL (0.4-1.0) H 01/28/23 04:30 Estimated GFR (MDRD) 20 (>89) L 01/28/23 04:30 Glucose 83 mg/dL (70-100) 01/28/23 04:30 Calcium 12.8 mg/dL (8.5-10.3) H* 01/28/23 04:30 Phosphorus 5.0 mg/dL (2.5-4.6) H 01/27/23 16:30 Magnesium 2.3 mg/dL (1.7-2.8) 01/27/23 16:30 Total Bilirubin 0.4 mg/dL (0.2-1.0) 01/28/23 04:30 AST 27 IU/L (10-42) 01/28/23 04:30 ALT 26 IU/L (10-60) 01/28/23 04:30 Alkaline Phosphatase 50 IU/L (42-121) 01/28/23 04:30 Total Protein 5.3 g/dL (6.7-8.2) L 01/28/23 04:30 Albumin 2.3 g/dL (3.2-5.5) L 01/28/23 04:30 Globulin 3.0 g/dL (2.1-4.2) 01/28/23 04:30 Albumin/Globulin Ratio 0.8 (1.0-2.2) L 01/28/23 04:30 Lipase 61 U/L (22-51) H 01/27/23 16:20 TSH 5.22 uIU/mL (0.34-5.60) 01/27/23 16:20 Free T4 1.24 ng/dL (0.58-1.64) 01/27/23 16:20 PTH Intact 7 pg/mL (12-88) L 01/27/23 16:20 Urine Color YELLOW 01/27/23 20:55 Urine Clarity CLEAR (CLEAR) 01/27/23 20:55 Urine pH 7.0 PH (5.0-7.5) 01/27/23 20:55 Ur Specific [place] 1.010 (1.002-1.030) 01/27/23 20:55 Urine Protein NEGATIVE mg/dL (NEGATIVE) 01/27/23 20:55 Urine Glucose (UA) NEGATIVE mg/dL (NEGATIVE) 01/27/23 20:55 Urine Ketones NEGATIVE mg/dL (NEGATIVE) 01/27/23 20:55 Urine Occult Blood NEGATIVE (NEGATIVE) 01/27/23 20:55 Urine Nitrite POSITIVE (NEGATIVE) H 01/27/23 20:55 Urine Bilirubin NEGATIVE (NEGATIVE) 01/27/23 20:55 Urine Urobilinogen 0.2 (NORMAL) E.U./dL (NORMAL) 01/27/23 20:55 Ur Leukocyte Esterase NEGATIVE (NEGATIVE) 01/27/23 20:55 Urine RBC 0-5 /HPF (0-5) 01/27/23 20:55 Urine WBC 4-5 /HPF (0-5) 01/27/23 20:55 Ur Squamous Epith Cells FEW Squamous (<= Few) 01/27/23 20:55 Urine Bacteria Few /HPF (None Seen) 01/27/23 20:55 Ur Microscopic Review INDICATED 01/27/23 20:55 Urine Culture Comments INDICATED 01/27/23 20:55 - Procedures Procedures: Procedures EXCISION OF STOMACH, PYLORUS, ENDO, DIAGN (12/28/15) INSPECTION OF LOWER INTESTINAL TRACT, ENDO (07/21/16) TRANSFUSE NONAUT RED BLOOD CELLS IN PERIPH VEIN, PERC (12/28/15)
--- NOTE | 2023-01-28 10:12 | XRAY Report ---
PROCEDURE: Chest 1 View X-Ray INDICATIONS: F/U CHF vs infiltrate TECHNIQUE: One view of the chest was acquired. COMPARISON: CT chest dated 01/27/2023 FINDINGS: Surgical changes and devices: Multiple median sternotomy wires are in place. Postsurgical changes of prior CABG. Lungs and pleura: No pneumothorax or substantial pleural effusion. Hyperaeration of the bilateral he mithoraces. No new focal consolidation. Streaky bibasilar opacities more pronounced on the left, felicia lar to comparison CT. Findings are likely related to atelectasis. Mediastinum: Mediastinal contours appear normal. Heart size is normal. Bones and chest wall: No suspicious bony lesions. Overlying soft tissues appear unremarkable. IMPRESSION: Persistent streaky bibasilar opacities more pronounced on the left. These are favored to represent at electasis although early airspace disease not excluded. No new focal consolidation seen. Reviewed by: Josh Freeman MD on 01/28/2023 9:10 AM SHANTELLE Approved by: Josh Freeman MD on 01/28/2023 9:10 AM SHANTELLE Station ID: [id number]
[2023-01-28] MEDS: AZITHROMYCIN INJ 500 MG in SODIUM CHLORIDE 0.9% 250 ML IV SCH (10:21)
--- NOTE | 2023-01-28 10:34 | PHARMACY PROGRESS NOTE ---
- Best Possible Medication History Admit Date and Time: 01/27/231934 Processed by: Pharmacy Medication History completed: Yes As the person ultimately responsible for medication therapy, providers are able to order a medication from an existing home medication list in [facility] via the "Reconcile Routine" prior to Confirmation of that medication by pharmacy retail support specialist. Such practice is discouraged except when the physician, in their clinical judgment, deems that a medical need exists for a medication without regard to previous use.
--- NOTE | 2023-01-28 11:43 | PROVIDER PROGRESS NOTE ---
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 Moderately dilated left atrium and right atrium Normal aortic root diameter with mural atherosclerosis Normal left ventricular size with a senile sigmoid septum. Normal LV contractility, ejection fraction 55 to 60%. Doppler shows grade 2 diastolic dysfunction. Normal right ventricular size and wall thickness, normal RV contractility. No pericardial effusion. Mitral annulus heavily calcified, mitral leaflets have good mobility, poor coaptation. Color Doppler shows severe mitral regurgitation. Tricuspid valve appears structurally normal normal except has poor coaptation. Color Doppler shows severe tricuspid regurgitation. Pulmonary artery pressure greater than 40 mmHg. The aortic valve is trileaflet and moderately sclerotic but has good mobility. Color Doppler shows severe aortic regurgitation Pulmonic valve appears structurally normal. There is moderate pulmonic regurgitation. SUMMARY: Moderate by-atrial enlargement Severe mitral, tricuspid, and aortic regurgitation and moderate pulmonic regurgitation. At least mild pulmonary hypertension present Normal RV size and function Normal LV size, LVEF 55% (which is low in the face of severe MR and AR). Grade 2 diastolic dysfunction present.
[2023-01-28] MEDS: ATORVASTATIN 40 MG TABLET PO SCH (21:16)
[2023-01-29] MEDS: SODIUM CHLORIDE FLUSH 0.9% 10 ML SYRINGE IVP SCH ×3 (02:04→19:10)
[2023-01-29 05:03] LABS: BASOPHILS % (AUTO) 0.3 %; EOSINOPHILS # (AUTO) 0.3 10^3/uL (0.0-0.7); EOSINOPHILS % (AUTO) 3.3 %; HCT - HEMATOCRIT 23.3 % (37.0-47.0); HGB - HEMOGLOBIN 7.5 g/dL (12.0-16.0); LYMPHOCYTES # (AUTO) 0.5 10^3/uL (1.5-3.5); LYMPHOCYTES % (AUTO) 5.8 %; MEAN CORPUSCULAR HEMOGLOBIN 27.2 pg (27.0-31.0); MEAN CORPUSCULAR HGB CONC 32.2 g/dL (32.0-36.0); MEAN CORPUSCULAR VOLUME 84.4 fL (81.0-99.0); MEAN PLATELET VOLUME 8.7 fL (7.9-10.8); MONOCYTES # (AUTO) 0.7 10^3/uL (0.0-1.0); MONOCYTES % (AUTO) 8.9 %; NEUTROPHILS # (AUTO) 6.4 10^3/uL (1.5-6.6); NEUTROPHILS % (AUTO) 81.2 %; PLT - PLATELET COUNT 409 10^3/uL (130-450); RED BLOOD COUNT 2.76 10^6/uL (4.20-5.40); RED CELL DISTRIBUTION WIDTH 13.4 % (12.0-15.0); WHITE BLOOD COUNT 7.9 x10^3/uL (4.8-10.8)
[2023-01-29 05:13] LABS: CALCIUM 11.1 mg/dL (8.5-10.3); CREATININE 2.1 mg/dL (0.4-1.0); PHOSPHORUS 3.8 mg/dL (2.5-4.6)
[2023-01-29] MEDS: atenoloL 25 MG TABLET PO SCH (09:00)
[2023-01-29] MEDS: SODIUM CHLORIDE 0.9% 1,000 ML IV SCH (09:01)
[2023-01-29] MEDS: cefTRIAXone 1 GM in SODIUM CHLORIDE 0.9% MINIBAG 100 ML IV SCH (09:01)
[2023-01-29] MEDS: DOCUSATE SODIUM 250 MG CAPSULE PO SCH (09:01)
[2023-01-29] MEDS: SENNA 8.6 MG TABLET PO SCH (09:01)
[2023-01-29] MEDS: polyethylene glycoL 3350 17 GM PACKET PO SCH (09:01)
[2023-01-29] MEDS: AZITHROMYCIN INJ 500 MG in SODIUM CHLORIDE 0.9% 250 ML IV SCH (09:44)
[2023-01-29] MEDS ORDERED: POTASSIUM CHLORIDE 10 MEQ CAPSULE PO ONE (12:00)
--- NOTE | 2023-01-29 18:26 | PROVIDER PROGRESS NOTE ---
Assessment/Plan - Problem List (1) Pneumonia Assessment/Plan: Patient presented with a mildly elevated WBC of 11.6. Her chest x-ray and CT chest were showing possible pneumonitis or early pneumonia. She was put on empiric IV Zithromax and IV ceftriaxone. Blood cultures are negative to date. She did not produce a sputum sample to send for culture. Plan: Continue with empiric antibiotics Assess her O2 sats with activity, PT and OT evaluations today. I anticipate she will be discharged tomorrow (2) LAYLA Her baseline creatinine is 0.9. She presented with a creatinine of 2.4. There was a history of her having poor oral intake for the previous 10-12 days. Her LAYLA was therefore most likely from dehydration. We started iv hydration. Because of concern for CHF, the IV fluid rate has been slowed. All labs were reviewed. Her creatinine has decreased to 2.3 yesterday, and is 2.1 today Plan: I will wean down her IV fluid today and stop it later in the day Follow creatinine daily Avoid nephrotoxins (3) Hypercalcemia She presented with a calcium of 14.8. She received IV saline. All labs were reviewed. There has been a slow improvement of her serum calcium level to 12 yesterday and 11 today. Hypercalcemia in the setting of having an abnormal ch est x-ray with nodules and opacities is concerning, in that there could be a malignancy, specifically small cell lung cancer. Plan: Continue daily monitoring of her calcium until discharge. I will be discontinuing hydration today, assess if the calcium goes up tomorrow before discharge, since I anticipate she will be discharged tomorrow (4) Abdominal pain This patient presented with several days of abdominal pain and a poor appetite. After having a BM, she now has no further abdominal pain and her appetite has improved. Plan: I reviewed with the son that the patient needs to increase her fiber (fruit and vegetable intake) and to stay better hydrated to prevent constipation (5) Weakness This was presumed to be on the basis of being dehydrated, failure to thrive for 10 to 12 days at home, and from the possible pneumonia on chest x-ray, and from uremia on labs, and hypercalcemia. Plan: She will have a PT evaluation (6) Anasarca Her CT abdomen was read as having anasarca. Her main complaint was that of abdominal pain and early satiety, which could have been from anasarca in the abdomen. Because of her murmur and this report of anasarca, I did her Echo yesterday. The Echo showed severe regurgitation of all 4 of her valves, and diastolic heart failure Plan: She is currently not volume overloaded peripherally. No diuretic is indicated currently The patient needs to see her inspector plug seam Dr. Mcbride, sooner than the April appointment and a copy of this echo report will be given to the family at the time of discharge to take to the cardiology (7) Valvular heart disease I did an Echocardiogram on her which showed severe mitral regurg, tricuspid regurg, aortic regurg and moderate pulmonic regurg. She has at least moderate pulmonary hypertension present. RV size and function were normal. Her LVEF is 55%, with grade 2 diastolic dysfunction present. The patient should have a hyperdynamic LVEF in the face of this much mitral regurgitation and tricuspid regurgitation, therefore she is going into systolic heart failure (ie. this LVEF is low therefore). Plan: With these findings of severe multi-valvular regurgitation, and a suboptimal LVEF, and moderate diastolic heart failure, it was advised that she go back to see her Robotics Specialist soon (not wait until the April appointment). A copy of the Echo report was given to the family to take to the Cardiology office visit. (8) HTN Plan: We resumed her usual home meds and her BP control was good. (9) CAD She is s/p CABG. Plan: We continued her B-jhoana and anti-platelet medications. - Current Meds Current Meds: Current Medications Generic Name Dose Route Start Last Admin Trade Name Freq PRN Reason Stop Dose Admin Atenolol 50 mg 01/28/23 09:00 01/29/23 09:00 Atenolol 25 Mg Tablet PO 50 mg DAILY MIKE Administration Atorvastatin Calcium 40 mg 01/28/23 21:00 01/28/23 21:16 Atorvastatin 40 Mg Tablet PO 40 mg QPM MIKE Administration Docusate Sodium 250 - 500 mg 01/28/23 09:00 01/29/23 09:01 Docusate Sodium 250 Mg Capsule PO Not Given DAILY MIKE Ceftriaxone Sodium 1 gm/ 100 mls @ 200 mls/hr 01/28/23 09:00 01/29/23 09:45 Sodium Chloride IV Infused DAILY MIKE Infusion Azithromycin 500 mg/ Sodium 250 mls @ 250 mls/hr 01/28/23 09:00 01/29/23 13:41 Chloride IV 01/29/23 22:00 Infused DAILY MIKE Infusion Polyethylene Glycol 17 gm 01/28/23 09:00 01/29/23 09:01 Polyethylene Glycol 3350 17 Gm Packet PO Not Given DAILY MIKE Senna 8.6 - 17.2 mg 01/28/23 09:00 01/29/23 09:01 Senna 8.6 Mg Tablet PO Not Given DAILY MIKE Sodium Chloride 10 ml 01/28/23 01:00 01/29/23 09:02 Sodium Chloride Flush 0.9% 10 Ml Syringe IVP Not Given 0100,0900,1700 MIKE - Lab Result Fish Bone Diagrams: 01/29/23 04:27 01/30/23 06:18 - Additional Planning My Orders: My Active Orders 01/28/23 21:00 Atorvastatin [Lipitor] 40 mg PO QPM 01/30/23 05:00 BMP - BASIC METABOLIC PANEL [CHEM] DAILYLAB CALCIUM [CHEM] DAILYLAB 01/31/23 05:00 BMP - BASIC METABOLIC PANEL [CHEM] DAILYLAB CALCIUM [CHEM] DAILYLAB 02/01/23 05:00 BMP - BASIC METABOLIC PANEL [CHEM] DAILYLAB CALCIUM [CHEM] DAILYLAB Subjective - Subjective Patient Reports: Feeling Better (No more shortness of breath, supplemental oxygen has been discontinued. Son reported that mom had a bowel movement and that she was just constipated for 5 days. Her abdominal pain has completely resolved after the bowel movement.) Objective Vital Signs: Vital Signs - 24 hr 01/28/23 01/29/23 01/29/23 20:15 00:10 14:00 Temperature 36.4 C L 36.9 C 36.9 C Heart Rate [ 67 69 68 Brachial] Respiratory 16 16 16 Rate Blood Pressure 153/58 H 133/70 H 118/53 L [Left Brachial artery] O2 Saturation 99 97 100 Oxygen O2 Source Room air I&O (Last 24 Hrs): Intake and Output Totals x24h 01/27/23 01/28/23 01/29/23 23:59 23:59 23:59 Intake Total 1375 4593.750 3356 Output Total 350 550 150 Balance 1025 4043.750 3206 General: Alert, Oriented x3 HEENT: Atraumatic, EOMI Neck: Supple, No JVD Neuro: Alert, Non Focal Cardiovascular: Regular rate, Other (murmur at base) Respiratory: No respiratory distress, Breath sounds nml Abdomen: Normal bowel sounds, Soft, No tenderness Extremities: No clubbing, No edema, No tenderness/swelling - Results Results: Laboratory Results WBC 7.9 x10^3/uL (4.8-10.8) 01/29/23 04:27 RBC 2.76 10^6/uL (4.20-5.40) L 01/29/23 04:27 Hgb 7.5 g/dL (12.0-16.0) L 01/29/23 04:27 Hct 23.3 % (37.0-47.0) L 01/29/23 04:27 MCV 84.4 fL (81.0-99.0) 01/29/23 04:27 MCH 27.2 pg (27.0-31.0) 01/29/23 04:27 MCHC 32.2 g/dL (32.0-36.0) 01/29/23 04:27 RDW 13.4 % (12.0-15.0) 01/29/23 04:27 Plt Count 409 10^3/uL (130-450) 01/29/23 04:27 MPV 8.7 fL (7.9-10.8) 01/29/23 04:27 Neut # (Auto) 6.4 10^3/uL (1.5-6.6) 01/29/23 04:27 Lymph # (Auto) 0.5 10^3/uL (1.5-3.5) L 01/29/23 04:27 [place] # (Auto) 0.7 10^3/uL (0.0-1.0) 01/29/23 04:27 Eos # (Auto) 0.3 10^3/uL (0.0-0.7) 01/29/23 04:27 Baso # (Auto) 0.0 10^3/uL (0.0-0.1) 01/29/23 04:27 Absolute Nucleated RBC 0.00 x10^3/uL 01/29/23 04:27 Nucleated RBC % 0.0 /100WBC 01/29/23 04:27 Sodium 136 mmol/L (135-145) 01/29/23 04:27 Potassium 3.0 mmol/L (3.5-5.0) L 01/29/23 04:27 Chloride 106 mmol/L (101-111) 01/29/23 04:27 Carbon Dioxide 24 mmol/L (21-32) 01/29/23 04:27 Anion Gap 6.0 (6-13) 01/29/23 04:27 BUN 37 mg/dL (6-20) H 01/29/23 04:27 Creatinine 2.1 mg/dL (0.4-1.0) H 01/29/23 04:27 Estimated GFR (MDRD) 22 (>89) L 01/29/23 04:27 Glucose 83 mg/dL (70-100) 01/29/23 04:27 Calcium 11.1 mg/dL (8.5-10.3) H 01/29/23 04:27 Phosphorus 3.8 mg/dL (2.5-4.6) 01/29/23 04:27 Magnesium 2.0 mg/dL (1.7-2.8) 01/29/23 04:27 Total Bilirubin 0.4 mg/dL (0.2-1.0) 01/28/23 04:30 AST 27 IU/L (10-42) 01/28/23 04:30 ALT 26 IU/L (10-60) 01/28/23 04:30 Alkaline Phosphatase 50 IU/L (42-121) 01/28/23 04:30 B-Natriuretic Peptide 1018 pg/mL (5-100) H 01/29/23 04:27 Total Protein 5.3 g/dL (6.7-8.2) L 01/28/23 04:30 Albumin 2.3 g/dL (3.2-5.5) L 01/28/23 04:30 Globulin 3.0 g/dL (2.1-4.2) 01/28/23 04:30 Albumin/Globulin Ratio 0.8 (1.0-2.2) L 01/28/23 04:30 Lipase 61 U/L (22-51) H 01/27/23 16:20 TSH 5.22 uIU/mL (0.34-5.60) 01/27/23 16:20 Free T4 1.24 ng/dL (0.58-1.64) 01/27/23 16:20 PTH Intact 7 pg/mL (12-88) L 01/27/23 16:20 Urine Color YELLOW 01/27/23 20:55 Urine Clarity CLEAR (CLEAR) 01/27/23 20:55 Urine pH 7.0 PH (5.0-7.5) 01/27/23 20:55 Ur Specific [place] 1.010 (1.002-1.030) 01/27/23 20:55 Urine Protein NEGATIVE mg/dL (NEGATIVE) 01/27/23 20:55 Urine Glucose (UA) NEGATIVE mg/dL (NEGATIVE) 01/27/23 20:55 Urine Ketones NEGATIVE mg/dL (NEGATIVE) 01/27/23 20:55 Urine Occult Blood NEGATIVE (NEGATIVE) 01/27/23 20:55 Urine Nitrite POSITIVE (NEGATIVE) H 01/27/23 20:55 Urine Bilirubin NEGATIVE (NEGATIVE) 01/27/23 20:55 Urine Urobilinogen 0.2 (NORMAL) E.U./dL (NORMAL) 01/27/23 20:55 Ur Leukocyte Esterase NEGATIVE (NEGATIVE) 01/27/23 20:55 Urine RBC 0-5 /HPF (0-5) 01/27/23 20:55 Urine WBC 4-5 /HPF (0-5) 01/27/23 20:55 Ur Squamous Epith Cells FEW Squamous (<= Few) 01/27/23 20:55 Urine Bacteria Few /HPF (None Seen) 01/27/23 20:55 Ur Microscopic Review INDICATED 01/27/23 20:55 Urine Culture Comments INDICATED 01/27/23 20:55 - Procedures Procedures: Procedures EXCISION OF STOMACH, PYLORUS, ENDO, DIAGN (12/28/15) INSPECTION OF LOWER INTESTINAL TRACT, ENDO (07/21/16) TRANSFUSE NONAUT RED BLOOD CELLS IN PERIPH VEIN, PERC (12/28/15)
[2023-01-29] MEDS: ATORVASTATIN 40 MG TABLET PO SCH (21:49)
[2023-01-30] MEDS: SODIUM CHLORIDE FLUSH 0.9% 10 ML SYRINGE IVP SCH ×2 (03:09→08:33)
[2023-01-30 06:31] LABS: CALCIUM 10.5 mg/dL (8.5-10.3); POTASSIUM 3.2 mmol/L (3.5-5.0)
[2023-01-30] MEDS: atenoloL 25 MG TABLET PO SCH (08:31)
[2023-01-30] MEDS: SENNA 8.6 MG TABLET PO SCH (08:32)
[2023-01-30] MEDS: polyethylene glycoL 3350 17 GM PACKET PO SCH (08:33)
[2023-01-30] MEDS: DOCUSATE SODIUM 250 MG CAPSULE PO SCH (08:33)
[2023-01-30] MEDS: cefTRIAXone 1 GM in SODIUM CHLORIDE 0.9% MINIBAG 100 ML IV SCH (08:33)
--- NOTE | 2023-01-30 10:57 | Discharge Plan ---
Discharge Plan Problem Reviewed?: Yes Disposition: Home, Self Care Condition: Stable Prescriptions: levoFLOXacin [Levaquin] 750 mg PO DAILY 4 Days #12 tablet Diet: Cardiac Activity Restrictions: Activity as Tolerated Shower Restrictions: No Driving Restrictions: Yes Assistance Devices: Walker Weight Bearing: Full Weight Health Concerns: The patient was hospitalized due to weakness, abdominal pain and poor appetite, and we found her to have a pneumonia. She received IV antibiotics and is going home to take several more days of oral antibiotic (Levaquin). The abdominal pain and poor appetite resolved after she had a bowel movement. So her constipation needs attention; eat more fruits and vegetables. She had an Echocardiogram of her heart done while here, and the summary report is going home with you, to show to her Correctional Officer Chief. I recommend a Cardiology visit earlier than April of this year. She may resume all of her other medications that she took before hospitalization. A walker has been given to you, for her use at home. Plan of Treatment: As above. The new [facility] [place]. Care Goals: Improvement in symptoms and stabilization are the goals. Assessment: The patient and family understand and are agreeable with the plan. No Smoking: If you smoke, Please STOP! Call for help. Follow-up with: Rubia Anguiano ARNP [Provider Admit Priv/Credential] -
--- NOTE | 2023-01-30 12:15 | DISCHARGE SUMMARY ---
Discharge Summary Admit Date: 01/27/23 Discharge Date: 01/30/23 Discharging Provider: Tammi Jimenez MD Primary Care Provider: Rubia Anguiano NP Code Status: Attempt Resuscitation Condition at Discharge: Stable Discharge Disposition: 01 Home, Self Care - HPI History of Present Illness: 83 y old female with PMH HTN, Hyperlipidemia, CAD s/p CABG brought in to the ER due to weakness, decreased appetite, for last 2 weeks. Patient is unable to provide any history so most of history is by the son present at bedside. No H/O hedache, chest pain, cough, nausea, vomiting, diarrhea or constipation On presentaion, pt was afebrile Labs showed WBC 11, Regulatory Administrator 2.4, Ca 14 CT chest , abdomen, pelvis was done which showed possible infiltrate, gastroparesis In ER, patient was given IVF and abx Patient is admitted due to pneumonia, LAYLA, Hypercalcemia, dehydartion, weakness and debility - HOSPITAL COURSE Hospital Course: (1) Pneumonia Patient presented with a mildly elevated WBC of 11.6. Her chest x-ray and CT chest were showing possible pneumonitis or early pneumonia. She was put on empi angy IV Zithromax and IV ceftriaxone. Blood cultures were negative to date. She did not produce a sputum sample to send for culture. She completed the course of Zithromax and was sent home to take 4 more days of oral Levaquin for treatment of the pneumonia. (2) LAYLA Her baseline creatinine is 0.9. She presented with a creatinine of 2.2. There was a history of her having poor oral intake for the previous 10-12 days. Her LAYLA was therefore most likely from dehydration. She received iv hydration. Because of concern for CHF, the IV fluid rate was slowed. Her creat improved with hydration and was at discharge. (3) Hypercalcemia She presented with a calcium of 14.8. She received IV saline, and there was a slow normalization of her serum calcium level. Ca was 10.5 on the day of discharge. Hypercalcemia in the setting of having an abnormal chest x-ray with nodules and opacities is concerning, in that there could be a malignancy, specifically small cell lung cancer. Close follow-up of her serum calcium level and a follow-up of her chest x-ray are advised. (4) Abdominal pain This patient presented with several days of abdominal pain and a poor appetite. After having a BM, she had no further abdominal pain and her appetite improved. She needs to be on better diet to manage constipation. (5) Weakness This was presumed to be on the basis of being dehydrated, failure to thrive for 10 to 12 days at home, findings of possible pneumonia on chest x-ray, uremia on labs, and hypercalcemia. She had a PT evaluation, was felt to be functioning nearly at her baseline and did not need rehab at a SNF. A walker was provided for her use. (6) Anasarca Her CT abdomen was read as having anasarca. Her main complaint was that of abdominal pain and early satiety, which could have been from anasarca in the abdomen. (7) Valvular heart disease An Echocardiogram was done here and showed severe mitral regurg, tricuspid regurg, aortic regurg and moderate pulmonic regurg. She has at least moderate pulmonary hypertension present. RV size and function were normal. Her LVEF is 55%, with grade 2 diastolic dysfunction present. The patient should have a hyperdynamic LVEF in the face of this much mitral regurgitation and tricuspid regurgitation, therefore she is going into systolic heart failure (ie. this LVEF is low therefore). With these findings of severe multi-valvular regurgitation, and a suboptimal LVEF, and moderate diastolic heart failure, it was advised that she go back to see her Breaker Unit Assembler soon (not wait until the April appointment). A copy of the Echo report was given to the family to take to the Cardiology office visit. (8) HTN We resumed her usual home meds and her BP control was good. (9) CAD She is s/p CABG. We continued her B-jhoana and anti-platelet medications. - ALLERGIES Allergies/Adverse Reactions: Allergies Allergy/AdvReac Type Severity Reaction Status Date / Time Penicillins Allergy Rash Verified 01/27/23 15:55 - MEDICATIONS Home Medications: Ambulatory Orders Medication Instructions Recorded Confirmed Clopidogrel Bisulfate [Plavix] 75 mg PO DAILY 04/13/14 01/28/23 Losartan [Cozaar] 25 mg PO DAILY 04/13/14 01/28/23 atenoloL [Tenormin] 25 mg PO DAILY 04/13/14 01/28/23 Atorvastatin Calcium 40 mg PO QPM 12/28/15 01/28/23 Multivitamin,Therapeutic 1 tab PO DAILY 12/28/15 01/28/23 [Thera-Tabs] levoFLOXacin [Levaquin] 750 mg PO DAILY 4 Days #12 tablet 01/30/23 - PHYSICAL EXAM AT DISCHARGE General Appearance: positive: No acute distress, Alert, Other (Short and thin elderly female, appears frail.) Eyes Bilateral: positive: Normal inspection, EOMI ENT: positive: ENT inspection nml, No signs of dehydration Neck: positive: Nml inspection, No JVD Respiratory: positive: No respiratory distress, Breath sounds nml Cardiovascular: positive: Regular rate & rhythm, Systolic murmur, Diastolic murmur Abdomen: positive: Non-tender, No organomegaly, Nml bowel sounds, No distention Skin: positive: Warm, Dry Extremities: positive: Non-tender, No pedal edema Neurologic/Psychiatric: positive: Oriented x3, Motor nml - LABS Result Diagrams: 01/29/23 04:27 01/30/23 06:18 - DIAGNOSTIC IMAGING Diagnostic Imaging Results: Final report reviewed - FOLLOW UP Follow Up: See PCP in the next 1 to 2 weeks for hospital follow-up visit. See [facility] Unit As[facility]er sooner than April of this year, for Cardiology follow-up visit. - TIME SPENT Time Spent in Discharge (Minutes): 40
[2023-01-30 14:39] VITALS: BP 171/58
== END 2023-01-30 14:43 | disposition home or self-care (01) | DRG 194 ==
LOC: ED 15:04 → MS3 19:35
PROVIDERS: ADMIT Internal Medicine; ATTEND Internal Medicine
DX: J18.9 Pneumonia, unspecified organism (principal); I50.30 Unspecified diastolic (congestive) heart failure; K31.89 Other diseases of stomach and duodenum; N17.9 Acute kidney failure, unspecified; R01.1 Cardiac murmur, unspecified; D72.829 Elevated white blood cell count, unspecified; Z68.1 Body mass index [BMI] 19.9 or less, adult; E87.1 Hypo-osmolality and hyponatremia; J98.11 Atelectasis; R91.8 Other nonspecific abnormal finding of lung field; E83.52 Hypercalcemia; R63.0 Anorexia; R53.1 Weakness; K59.00 Constipation, unspecified; R60.1 Generalized edema; I27.20 Pulmonary hypertension, unspecified; I08.3 Combined rheumatic disorders of mitral, aortic and tricuspid valves; I25.10 Atherosclerotic heart disease of native coronary artery without angina pectoris; Z95.1 Presence of aortocoronary bypass graft; I11.0 Hypertensive heart disease with heart failure; E78.5 Hyperlipidemia, unspecified; Z95.5 Presence of coronary angioplasty implant and graft; E86.0 Dehydration; K31.84 Gastroparesis
CPT/HCPCS: 36415; 70450; 71045; 71250; 74176; 80048; 80053; 81001; 83690; 83735; 83880; 83970; 84100; 84439; 84443; 85025; 85027; 87086; 97161; 99285; A9270; J2765; 81003; 82397

== ENCOUNTER 2023-04-24 08:00 | Outpatient (CLI) | payer MEDICARE, MEDICAID ==
[2023-04-24 12:11] LABS: FECAL OCCULT BLOOD (FIT) NEGATIVE (NEGATIVE)
== END 2023-04-24 23:59 | disposition home or self-care (01) ==
LOC: LAB.R 08:00
PROVIDERS: ATTEND Nurse Practitioner Family
DX: D64.9 Anemia, unspecified (principal); Z79.01 Long term (current) use of anticoagulants; R63.6 Underweight
CPT/HCPCS: 82274

== ENCOUNTER 2023-10-26 10:36 | Outpatient (CLI) | payer MEDICARE, MEDICAID ==
[2023-10-26 17:46] LABS: BASOPHILS % (AUTO) 0.3 %; EOSINOPHILS # (AUTO) 0.2 10^3/uL (0.0-0.7); EOSINOPHILS % (AUTO) 1.6 %; HCT - HEMATOCRIT 35.1 % (37.0-47.0); LYMPHOCYTES # (AUTO) 1.4 10^3/uL (1.5-3.5); LYMPHOCYTES % (AUTO) 14.6 %; MEAN CORPUSCULAR HEMOGLOBIN 29.8 pg (27.0-31.0); MEAN CORPUSCULAR HGB CONC 31.3 g/dL (32.0-36.0); MEAN CORPUSCULAR VOLUME 95.1 fL (81.0-99.0); MEAN PLATELET VOLUME 9.3 fL (7.9-10.8); MONOCYTES # (AUTO) 0.6 10^3/uL (0.0-1.0); MONOCYTES % (AUTO) 6.3 %; NEUTROPHILS # (AUTO) 7.5 10^3/uL (1.5-6.6); NEUTROPHILS % (AUTO) 76.8 %; PLT - PLATELET COUNT 284 10^3/uL (130-450); RED BLOOD COUNT 3.69 10^6/uL (4.20-5.40); RED CELL DISTRIBUTION WIDTH 13.2 % (12.0-15.0); WHITE BLOOD COUNT 9.8 x10^3/uL (4.8-10.8)
[2023-10-26 18:00] LABS: ALBUMIN 4.1 g/dL (3.2-5.5); ALBUMIN/GLOBULIN RATIO 1.1 (1.0-2.2); ALKALINE PHOSPHATASE 78 IU/L (42-121); ALT ALANINE AMINOTRANSFERASE 13 IU/L (10-60); AST ASPARTATE AMINOTRANSFERASE 21 IU/L (10-42); BILIRUBIN,TOTAL 0.4 mg/dL (0.2-1.0); BUN - BLOOD UREA NITROGEN 29 mg/dL (6-20); CALCIUM 9.5 mg/dL (8.5-10.3); CARBON DIOXIDE - CO2 26 mmol/L (21-32); CHLORIDE 106 mmol/L (101-111); CHOL/HDL RATIO 2.7 (<4.4); CHOLESTEROL 131 mg/dL; CREATININE 0.9 mg/dL (0.6-1.3); GFR - MDRD 60 (>89); GLUCOSE 87 mg/dL (74-104); HDL CHOLESTEROL 49 mg/dL; LDL CHOLESTEROL,CALCULATED 72 mg/dL; LDL/HDL RATIO 1.5 (<4.4); POTASSIUM 4.2 mmol/L (3.5-4.5); SODIUM 138 mmol/L (135-145); TOTAL PROTEIN 7.7 g/dL (6.4-8.9); TRIGLYCERIDES 52 mg/dL (48-352); VLDL CHOLESTEROL 10 mg/dL
== END 2023-10-26 10:37 | disposition home or self-care (01) ==
LOC: LAB.N 10:36
PROVIDERS: ATTEND Internal Medicine Cardiovascular Disease
DX: E78.5 Hyperlipidemia, unspecified (principal)
CPT/HCPCS: 36415; 80053; 80061; 83721; 85025

== ENCOUNTER 2024-02-14 07:46 | Outpatient (CLI) | payer MEDICARE, MEDICAID ==
[2024-02-14 12:22] LABS: BASOPHILS % (AUTO) 0.4 %; EOSINOPHILS # (AUTO) 0.3 10^3/uL (0.0-0.7); EOSINOPHILS % (AUTO) 3.7 %; HCT - HEMATOCRIT 35.2 % (37.0-47.0); HGB - HEMOGLOBIN 10.9 g/dL (12.0-16.0); LYMPHOCYTES # (AUTO) 1.1 10^3/uL (1.5-3.5); LYMPHOCYTES % (AUTO) 14.5 %; MEAN CORPUSCULAR HEMOGLOBIN 29.5 pg (27.0-31.0); MEAN CORPUSCULAR VOLUME 95.1 fL (81.0-99.0); MEAN PLATELET VOLUME 9.2 fL (7.9-10.8); MONOCYTES # (AUTO) 0.6 10^3/uL (0.0-1.0); MONOCYTES % (AUTO) 8.8 %; NEUTROPHILS # (AUTO) 5.2 10^3/uL (1.5-6.6); NEUTROPHILS % (AUTO) 72.2 %; PLT - PLATELET COUNT 294 10^3/uL (130-450); RED CELL DISTRIBUTION WIDTH 13.1 % (12.0-15.0); WHITE BLOOD COUNT 7.3 x10^3/uL (4.8-10.8)
[2024-02-14 13:04] LABS: % IRON SATURATION 25 % (20-50); ALBUMIN 4.4 g/dL (3.2-5.5); ALBUMIN/GLOBULIN RATIO 1.4 (1.0-2.2); ALKALINE PHOSPHATASE 77 IU/L (42-121); ALT ALANINE AMINOTRANSFERASE 15 IU/L (10-60); AST ASPARTATE AMINOTRANSFERASE 25 IU/L (10-42); BILIRUBIN,TOTAL 0.4 mg/dL (0.2-1.0); BUN - BLOOD UREA NITROGEN 24 mg/dL (6-20); CALCIUM 9.9 mg/dL (8.5-10.3); CARBON DIOXIDE - CO2 27 mmol/L (21-32); CHLORIDE 100 mmol/L (101-111); CHOL/HDL RATIO 2.9 (<4.4); CHOLESTEROL 146 mg/dL; CREATININE 0.8 mg/dL (0.6-1.3); GFR - MDRD 68 (>89); GLUCOSE 99 mg/dL (74-104); HDL CHOLESTEROL 50 mg/dL; IRON 81 ug/dL (50-212); LDL CHOLESTEROL,CALCULATED 80 mg/dL; LDL/HDL RATIO 1.6 (<4.4); POTASSIUM 4.6 mmol/L (3.5-4.5); SODIUM 132 mmol/L (135-145); TOTAL IRON BINDING CAPACITY 323 ug/dL (250-450); TOTAL PROTEIN 7.5 g/dL (6.4-8.9); TRANSFERRIN 231 mg/dL (203-362); TRIGLYCERIDES 81 mg/dL; VLDL CHOLESTEROL 16 mg/dL
[2024-02-14 13:10] LABS: FERRITIN 188.6 ng/mL (11.0-306.8)
== END 2024-02-14 07:47 | disposition home or self-care (01) ==
LOC: LAB.N 07:46
PROVIDERS: ATTEND Nurse Practitioner Family
DX: I12.9 Hypertensive chronic kidney disease with stage 1 through stage 4 chronic kidney disease, or unspecified chronic kidney disease (principal); N18.2 Chronic kidney disease, stage 2 (mild); E78.5 Hyperlipidemia, unspecified; D64.9 Anemia, unspecified
CPT/HCPCS: 36415; 80053; 80061; 82728; 83540; 83721; 84466; 85025